=== PATIENT | male | born 1965 | race Two or more races ===

== ENCOUNTER 2020-10-31 06:48 | Day surgery (SDC) | payer OTHER ==
[~2020-10-31 06:48] MED LIST: ADULT LOW DOSE81 M1 PO; HYDROCHLOROTHIA25 MG PO; VASOTEC20 M1 PO
== END 2020-10-31 13:40 | disposition home or self-care (01) ==
LOC: CIR.AMB 06:48
PROVIDERS: ATTEND Orthopaedic Surgery
DX: M75.121 Complete rotator cuff tear or rupture of right shoulder, not specified as traumatic (principal); M75.21 Bicipital tendinitis, right shoulder; Z20.822 Contact with and (suspected) exposure to COVID-19